=== PATIENT | female | born 1960 | race Caucasian/White ===

== ENCOUNTER 2018-02-15 05:47 | Inpatient (IN) | payer BC ==
[2018-01-21 14:31] VITALS: BMI 32.0
--- NOTE | 2018-01-21 14:42 | PAT Medication Instructions ---
Service Date Jan 21, 2018. Current Home Medication List Atorvastatin (Lipitor), 40 MG PO QPM Cholecalciferol (Vitamin D3), 1 CAP PO QPM Cyanocobalamin (Vitamin B12), 1,000 MCG PO QPM Duloxetine HCl (Cymbalta), 1 CAP PO QPM Hydrochlorothiazide (Hctz), 25 MG PO QAM Hydrocodone/Acetaminophen 10MG/325MG ([place] 10MG/325MG), 1 TAB PO Q4H PRN for Pain Linaclotide (Linzess), 145 MCG PO PRN Lisinopril (Zestril), 10 MG PO HS Lorazepam (Ativan), 0.5 MG PO TID PRN for PRN Pantoprazole (Protonix), 40 MG PO HS Potassium Chloride (Micro-K Ext Rel), 10 MEQ PO QAM Ranitidine Hcl (Zantac), 300 MG PO HS Sertraline (Zoloft), 200 MG PO HS Medication Instructions For Your Scheduled Surgery - Hold the following medications the night prior to surgery: Lisinopril (Zestril), 10 MG PO HS - Hold the following medications the morning of surgery: Hydrochlorothiazide (Hctz), 25 MG PO QAM Linaclotide (Linzess), 145 MCG PO PRN Potassium Chloride (Micro-K Ext Rel), 10 MEQ PO QAM - Take the following medications the morning of surgery with a sip of water: Lorazepam (Ativan), 0.5 MG PO TID PRN for PRN (if needed) Hydrocodone/Acetaminophen 10MG/325MG ([place] 10MG/325MG), 1 TAB PO Q4H PRN for Pain (okay to take up to 4 hours prior to surgery if needed) - Take the following medications as scheduled the night before surgery: Ranitidine Hcl (Zantac), 300 MG PO HS Sertraline (Zoloft), 200 MG PO HS Pantoprazole (Protonix), 40 MG PO HS Lorazepam (Ativan), 0.5 MG PO TID PRN for PRN (if needed) Linaclotide (Linzess), 145 MCG PO PRN (if needed) Hydrocodone/Acetaminophen 10MG/325MG ([place] 10MG/325MG), 1 TAB PO Q4H PRN for Pain (if needed) Duloxetine HCl (Cymbalta), 1 CAP PO QPM Atorvastatin (Lipitor), 40 MG PO QPM Cholecalciferol (Vitamin D3), 1 CAP PO QPM Cyanocobalamin (Vitamin B12), 1,000 MCG PO QPM If you have any questions please call us at [phone] or [phone] or [phone]
--- NOTE | 2018-01-21 16:01 | DIAGNOSTIC IMAGING REPORT ---
CHEST 2 VIEWS ROUTINE CLINICAL HISTORY: Preoperative chest COMPARISON STUDY: No previous studies for comparison. FINDINGS: The cardiac and mediastinal contours are normal. There is no evidence of focal pulmonary consolidation. There is no evidence of failure. No pleural effusions are visualized.[ IMPRESSION: No active disease in the chest. Electronically signed by: Dashawn Brewster M.D. 01/21/2018 4:00 PM Dictated Date/Time: 01/21/2018 4:00 PM
[2018-01-21 16:28] LABS: BASO % 0.3 %; BASO ABS # 0.03 K/uL (0-0.2); EOS % 1.3 %; EOS ABS # 0.13 K/uL (0-0.5); HEMATOCRIT 39.3 % (37-47); HEMOGLOBIN 13.7 g/dL (12.0-16.0); IG# 0.01 K/uL (0.00-0.02); LYMPH % 21.9 %; LYMPH ABS # 2.17 K/uL (1.2-3.4); MEAN CELL VOLUME 92.3 fL (80-100); MEAN CORPUSCULAR HEMOGLOBIN 32.2 pg (25-34); MEAN CORPUSCULAR HGB CONC 34.9 g/dl (32-36); MONO % 6.5 %; MONO ABS # 0.64 K/uL (0.11-0.59); NEUT % 69.9 %; NEUT ABS # 6.94 K/uL (1.4-6.5); PLATELET COUNT 274 K/uL (130-400); RED CELL DISTRIBUTION WIDTH CV 13.3 % (11.5-14.5); RED CELL DISTRIBUTION WIDTH SD 44.6 fL (36.4-46.3); WHITE BLOOD COUNT 9.92 K/uL (4.8-10.8)
[2018-01-21 16:39] LABS: CALCIUM 9.1 mg/dl (8.5-10.1); CREATININE 1.06 mg/dl (0.60-1.20); POTASSIUM 3.5 mmol/L (3.5-5.1)
[2018-02-15] VITALS (14 sets, daily range): BP systolic 105–134; BP diastolic 66–85; PULSE 79–101; TEMP 36.2–36.6; O2SAT 94–100; Ht 162.6 cm; Wt 86.0 kg
[~2018-02-15] VITALS: Ht 162.6 cm; Wt 86.0 kg
[~2018-02-15 05:47] MED LIST: ATOR-24 PO; CHOL2000 PO; CYAN100020 PO; CYM/30 PO; HYDR-4079 PO; HYDR25TA4 PO; LINA1CAP PO; LISI-461 PO; LORA-741 PO; PANT40TA PO; POTA10CA28 PO; RANI300T2 PO; SERT-234 PO
[2018-02-15] MEDS ORDERED: LACTATED RINGER'S 1000ML 1,000 ML IV SCH (06:00)
[2018-02-15] MEDS ORDERED: CEFAZOLIN 2000MG IV PUSH 15 ML IV SCH (06:00)
[2018-02-15] MEDS ORDERED: FENTANYL CITRATE INJ 50 MCG/1 ML 2 ML VIAL ONE ×3 (06:51→09:38)
[2018-02-15] MEDS ORDERED: MIDAZOLAM HCL 1 MG/ML 2ML VIAL ONE (06:51)
[2018-02-15] MEDS ORDERED: BACITRACIN 50000 UNIT VIAL ONE (07:06)
[2018-02-15] MEDS ORDERED: ATROPINE SULFATE 0.1 MG/ML 5ML SYR IV PRN (07:30)
[2018-02-15] MEDS ORDERED: ONDANSETRON INJ 2 MG/ML 2 ML VIAL IV PRN ×2 (07:30→09:45)
[2018-02-15] MEDS ORDERED: EpHEDrine SULFATE INJ 50 MG/ML AMP IV PRN (07:30)
--- NOTE | 2018-02-15 07:35 | History & Physical Bridge Note ---
H&P Re-Evaluation Bridge Note: I have examined the patient, reviewed the History & Physical and in the interval since the performance of the History & Physical I have noted the following changes of clinical significance: No changes noted
--- NOTE | 2018-02-15 07:36 | History and Physical ---
History & Physical Date Feb 15, 2018. Chief Complaint Neck and arm pain History of Present Illness The patient is a 57 year old female with complaints of neck and arm pain Additional History Hepatic Disease: No Endocrine Disorder: No Kidney Disease: No Hypertension: Yes Heart Disease: No Bleeding Tendencies: No Infectious Diseases: No Allergies Coded Allergies: Nickel (Verified Allergy, Unknown, ALL OVER BODY RASH WITH METAL, 02/15/18) Aspirin (Verified Adverse Reaction, Mild, GI UPSET, 02/15/18) Home Medications Scheduled Atorvastatin (Lipitor), 40 MG PO QPM Cholecalciferol (Vitamin D3), 1 CAP PO QPM Cyanocobalamin (Vitamin B12), 1,000 MCG PO QPM Hydrochlorothiazide (Hctz), 25 MG PO QAM Lisinopril (Zestril), 10 MG PO HS Pantoprazole (Protonix), 40 MG PO HS Potassium Chloride (Micro-K Ext Rel), 10 MEQ PO QAM Ranitidine Hcl (Zantac), 300 MG PO HS Sertraline (Zoloft), 200 MG PO HS Scheduled PRN Hydrocodone/Acetaminophen 10MG/325MG ([place] 10MG/325MG), 1 TAB PO Q4H PRN for Pain Lorazepam (Ativan), 0.5 MG PO TID PRN for PRN Physical Examination Skin: warm/dry, no rash Eyes: normal inspection, EOMI, sclerae normal ENT: normal ENT inspection, pharynx normal Head: normocephalic, atraumatic Neck: supple, no adenopathy, trachea midline Respiratory/Chest: lungs clear, normal breath sounds, no respiratory distress Cardiovascular: regular rate, rhythm, no edema, no murmur Abdomen / GI: normal bowel sounds, non tender Back: normal inspection Extremities: normal inspection, normal range of motion Neurologic/Psych: no motor/sensory deficits, alert, normal reflexes, oriented x 3 Diagnosis Cervical spinal stenosis Plan of Treatment C5 corpectomy C4-C7 fusion ACDF C6-7
[2018-02-15] MEDS ORDERED: HYDROmorphone INJ 2 MG/ML SYR/VIAL ONE ×2 (08:08→09:44)
[2018-02-15] MEDS ORDERED: FLOSEAL HEMOSTATIC MATRIX 10ML TOP ONE (09:30)
--- NOTE | 2018-02-15 09:41 | [facility] Operative Report ---
Operative Report Operative Date Feb 15, 2018. Pre-Operative Diagnosis Cervical Spinal Stenosis Post-Operative Diagnosis Cervical Spinal Stenosis Procedure(s) Performed 1. Anterior cervical corpectomy C5. #2 anterior cervical discectomy C6-7. #3 anterior cervical arthrodesis C4-C6 and C6-7. #4 placement peek cage 23 mm in height at C4-C6 and 7 mm at C6-7. #5 placement of locally harvested morselized autograft combined with DBM in the interbody cages. #6 application of globus plate and screws C4-C7. Surgeon Dr. Cheung Mva Reactor Operator Head Surgeon(s) Shady Tang PA-C Estimated Blood Loss 150 cc Findings Severe spinal stenosis Specimens none per surgeon Anesthesia Type General Description of Procedure Patient was met with preoperatively case discussed all questions addressed. After informed consent obtained patient was taken to the operative suite underwent intubation and placed in supine position on the David table of the head [place] headholder. All bony prominences were well-padded eyes inspected to ensure no external pressure placed upon them. This point the anterior cervical spine was prepped and draped in the normal sterile fashion. The assistance of fluoroscopy identified the C5-6 disc space and a transverse incision was placed along the right anterior aspect of the cervical spine overlying this region. Sharp dissection with the assistance of bipolar electrocautery was performed down to and exposing exposing the anterior cervical spine from C4-C7. Self retaining retractor was placed. I then performed a complete discectomy of C4-5 out to the uncovertebral joints bilaterally followed by C5-6. Roff distracting pins were then placed in C4 and C6 to distract across the C5 vertebral body. Then performed a complete corpectomy C5 including removal of all posterior annular fibers longitudinal ligament and bilateral foraminotomies. Endplates were then burred to subcortical bleeding bone and a 23 mm peek cage filled with locally harvested morselized autograft and DBM tapped in position. Distracting apparatus was removed and I proceeded to C6-7. Complete discectomy performed up to the uncal vertebral joints bilaterally was performed to remove posterior annular fibers performed bilateral foraminotomies. The endplates were then burred to subcortical bleeding bone and a 7 mm peek cage filled with locally harvested Lester's autograft and DBM tapped in position. All distracting apparatus was removed and the globus plate and screws applied with the assistance of fluoroscopy. Incision was then copiously irrigated explored to ensure there is no damage to surrounding structures or remaining bleeding. A 10 round LUZ drain was inserted. Incision was then closed with 2 Vicryl in a fashion of 4-0 Monocryl for fashion closure Steri-Strips sterile dressing was placed. Patient will continue to PACU in stable condition. Please note Cornelio Tang was present throughout the entire procedure involved in patient positioning complex portions of the surgery and fashion closure. I attest to the content of the Intraoperative Record and any orders documented therein. Any exceptions are noted below.
[2018-02-15] MEDS ORDERED: MAGNESIUM HYDROXIDE SUSP 30 ML UDC PO PRN (09:45)
[2018-02-15] MEDS ORDERED: DO NOT ADMINISTER PNEUMOCOCCAL VACCINE PRN (09:45)
[2018-02-15] MEDS ORDERED: LORAZEPAM 0.5 MG TAB PO PRN ×2 (09:45)
[2018-02-15] MEDS ORDERED: NALOXONE HCL 0.4 MG/1 ML VIAL/CARP IV PRN (09:45)
[2018-02-15] MEDS ORDERED: DO NOT ADMINISTER FLU VACCINE PRN (09:45)
[2018-02-15] MEDS ORDERED: DEXAMETHASONE INJ 8 MG in SYRINGE 0 ML IV PRN (09:45)
[2018-02-15] MEDS ORDERED: ACETAMINOPHEN IV 1,000 MG in EMPTY BAG 0 ML IV PRN (09:45)
[2018-02-15] MEDS ORDERED: DiphenhydrAMINE HCL 50 MG/ML VIAL IV PRN (09:45)
[2018-02-15] MEDS ORDERED: LORAZEPAM INJ 0.5 MG in SYRINGE 0.75 ML IV PRN (09:45)
[2018-02-15] MEDS ORDERED: RACEPINEPHRINE 2.25% NEBU SOLN 0.5 ML VIAL INH PRN (09:45)
[2018-02-15] MEDS ORDERED: PHENYLEPHRINE 100MCG/ML 5ML SYR ONE (10:04)
[2018-02-15] MEDS ORDERED: DEXAMETHASONE SOD INJ 4 MG/ML VIAL ONE (10:04)
[2018-02-15] MEDS ORDERED: LIDOCAINE HCL 2% 2 ML VIAL (20MG/ML) ONE (10:04)
[2018-02-15] MEDS ORDERED: GLYCOPYRROLATE INJ 0.2 MG/ML VIAL ONE (10:04)
[2018-02-15] MEDS ORDERED: PROPOFOL IV EMULSION 10 MG/ML 20 ML VIAL IV ONE (10:04)
[2018-02-15] MEDS ORDERED: ONDANSETRON INJ 2 MG/ML 2 ML VIAL ONE (10:04)
[2018-02-15] MEDS ORDERED: NEOSTIGMINE METHYLSULFATE 1 MG/ML 10ML VIAL ONE (10:04)
[2018-02-15] MEDS: FENTANYL CITRATE INJ 50 MCG/1 ML 2 ML VIAL IV PRN ×4 (10:04→10:19)
--- NOTE | 2018-02-15 10:08 | DIAGNOSTIC IMAGING REPORT ---
Cervical SPINE, INTRAOPERATIVE FLUOROSCOPY HISTORY: C4-C7 anterior fusion. FLUOROSCOPY TIME: 12 seconds. FINDINGS: Intraoperative fluoroscopy was provided for the cervical spine. 4 fluoroscopic spot images were obtained. Anterior cervical discectomy and fusion from C4 through C7 with a C5 corpectomy. The hardware appears intact. IMPRESSION: Fluoroscopy provided for a anterior cervical discectomy and fusion from C4 through C7.. Electronically signed by: Moshe Torres M.D. 02/15/2018 10:07 AM Dictated Date/Time: 02/15/2018 10:06 AM
[2018-02-15] MEDS: HYDROmorphone INJ 1 MG/ML SYR IV PRN ×6 (10:20→10:45)
[2018-02-15] MEDS ORDERED: LORAZEPAM 2 MG/ML 1 ML VIAL ONE (10:32)
[2018-02-15] MEDS ORDERED: NURSING VERBAL MED ORDER ONE (10:45)
--- NOTE | 2018-02-15 10:51 | Anesthesiology Progress Note ---
Anesthesia Post Op Note Date & Time Feb 15, 2018 at 10:51 Vital Signs Pain Intensity: 4 Vital Signs Past 12 Hours Date Time Temp Pulse Resp B/P (MAP) Pulse Ox O2 Delivery O2 Flow Rate FiO2 02/15/18 10:45 97 18 104/77 99 Nasal Cannula 2 02/15/18 10:35 36.3 90 18 110/59 98 Nasal Cannula 2 02/15/18 10:25 101 20 121/74 99 Nasal Cannula 2 02/15/18 10:15 93 14 119/77 100 Oxymask 10 02/15/18 10:05 96 20 132/69 100 Oxymask 10 02/15/18 09:56 36.2 94 18 116/76 100 Oxymask 10 02/15/18 06:15 36.6 80 20 134/85 98 Room Air Notes Mental Status: alert / awake / arousable, participated in evaluation Pt Amnestic to Procedure: Yes Nausea / Vomiting: adequately controlled Pain: adequately controlled Airway Patency, RR, SpO2: stable & adequate BP & HR: stable & adequate Hydration State: stable & adequate Anesthetic Complications: no major complications apparent
[2018-02-15] MEDS ORDERED: RXC5 PO (11:37)
--- NOTE | 2018-02-15 11:38 | Discharge Instructions ---
Discharge Instructions Date of Service Feb 15, 2018. Admission Reason for Admission: Cervical Spinal Stenosis Discharge Discharge Diagnosis / Problem: cervical stenosis Discharge Goals Goal(s): Improve function Activity Recommendations Activity Limitations: per Instructions/Follow-up section . Instructions / Follow-Up Instructions / Follow-Up ACTIVITY RECOMMENDATIONS: SELF CARE INSTRUCTIONS AFTER CERVICAL FUSIONS 1. No smoking. Smoking drastically decreases the chance of a solid fusion. 2. No bending, lifting more than 5 pounds, or twisting (roll like a log when turning in bed). 3. You may shower 3 days after surgery. Thoroughly dry wound. Do not soak in the tub. 4. Cervical collar: Must be worn at all times including sleeping. You may remove the brace only to bath, eat and if you are sitting in a recliner. 5. Please walk as much as you can for exercise. Gradually increase the distance that you walk as your endurance increases. SPECIAL CARE INSTRUCTIONS: VERY IMPORTANT TO READ AND REVIEW A. Do not take any anti-inflammatory medications (i.e. Indocin, Advil, Aspirin, Naprosyn, Aleve, Motrin, etc.) as these may inhibit the chance of a solid fusion. Tylenol is okay to take. B. Your surgical incision has been closed with a cosmetic suture under the skin that will dissolve in about 6 weeks. In 14 days, you can use a pair of clean scissors and cut the suture that is left outside of the skin at the ends of your incision. C. Complications are uncommon, but please contact us if you have any signs or symptoms of: 1. wound infection (fever higher than 102.5 degrees F, redness, separation of wound, drainage, or increasing pain from the incision) 2. blood clots in legs (pain, swelling, redness and warmth in legs) 3. urinary tract infection (fever higher than 102.5 degrees, burning upon urination or increased frequency of urination) 4. nerve problems (inability to walk on your toes or heels, numbness, loss of bowel or bladder control) 5. any other symptoms that concern you. D. Please call the office at if you have any concerns or questions about your operation or recovery. MANAGING PAIN AFTER SPINAL SURGERY 1. Narcotic medication is intended for short-term use and will be provided for surgical pain. Surgical pain usually lasts for a period of 4-6 weeks. Narcotic medication includes Percocet, Vicodin, Darvocet, Tylenol #3 or Lortab. 2. Longer-term pain is more appropriately treated with non-narcotic medication such as Tylenol ES. 3. Muscle spasm is not appropriately treated with narcotics. Muscle relaxers such as Soma, Flexeril or Skelaxin can be used along with Tylenol ES. 4. Remember that we all live with some "aches and pains". This is not unusual or uncommon after an injury or as we get older. 5. We will provide appropriate medication within the normal guidelines of their prescribed use. We will also be very cautious and aware of potential abuse and extended duration of patients' medication needs. 6. Please allow 2-3 days to process refills. Prescriptions will not be mailed but must be picked up at the office. FOLLOW UP VISIT: Keep your scheduled follow-up appointment. Any questions, please call the office at . Current Hospital Diet Patient's current hospital diet: Clear Liquid Diet Discharge Diet Recommended Diet: Regular Diet Procedures Procedures Performed: 1. Anterior cervical corpectomy C5. #2 anterior cervical discectomy C6-7. #3 anterior cervical arthrodesis C4-C6 and C6-7. #4 placement peek cage 23 mm in height at C4-C6 and 7 mm at C6-7. #5 placement of locally harvested morselized autograft combined with DBM in the interbody cages. #6 application of globus plate and screws C4-C7. Pending Studies Studies pending at discharge: no Medical Emergencies . Who to Call and When: Medical Emergencies: If at any time you feel your situation is an emergency, please call 911 immediately. . Non-Emergent Contact Non-Emergency issues call your: Primary Care Provider . "Provider Documentation" section prepared by Mane Cheung. .
[2018-02-15] MEDS ORDERED: HYDROCHLOROTHIAZIDE 25 MG TAB PO STA (11:44)
[2018-02-15] MEDS ORDERED: SCOPOLAMINE 1.5 MG TDSY TD SCH (12:00)
[2018-02-15] MEDS: SODIUM CHLORIDE 0.9% 1000ML 1,000 ML IV SCH (12:39)
[2018-02-15] MEDS: POTASSIUM CHLORIDE 10 MEQ TABCR PO SCH (12:39)
[2018-02-15] MEDS: CHECK SCOPOLAMINE PATCH PLACEMENT SCH ×2 (15:36→22:58)
[2018-02-15] MEDS ORDERED: NURSING DECISION MEDICATION ORDER SCH (17:00)
[2018-02-15] MEDS ORDERED: COUGH DROP (SUGAR FREE) LOZ 24 LOZ/1 BOX LOZ PRN (17:15)
[2018-02-15] MEDS: OXYCODONE HCL IR 5 MG TAB (IMMEDIATE RELEASE) PO PRN ×2 (18:33→23:02)
[2018-02-15] MEDS: CEFAZOLIN IV 2,000 MG in SYRINGE 0 ML IV SCH (18:33)
[2018-02-15] MEDS ORDERED: RANITIDINE HCL 150 MG TAB PO SCH (21:00)
[2018-02-15] MEDS ORDERED: ATORVASTATIN 20 MG TAB PO SCH (21:00)
[2018-02-15] MEDS ORDERED: SERTRALINE HCL 100 MG TAB PO SCH (21:00)
[2018-02-15] MEDS ORDERED: PANTOprazole SOD 40 MG TAB PO SCH (21:00)
[2018-02-15] MEDS ORDERED: LISINOPRIL 10 MG TAB PO SCH (21:00)
[2018-02-15] MEDS: HYDROmorphone INJ 0.5 MG/0.5 ML SYR IV PRN (21:23)
[2018-02-15] MEDS: DOCUSATE SODIUM 100 MG CAP PO SCH (21:25)
[2018-02-16] VITALS (12 sets, daily range): BP systolic 95–104; BP diastolic 55–64; PULSE 72–86; TEMP 36.5–36.7; O2SAT 92–100
[2018-02-16] MEDS: SODIUM CHLORIDE 0.9% 1000ML 1,000 ML IV SCH (02:20)
[2018-02-16] MEDS: CEFAZOLIN IV 2,000 MG in SYRINGE 0 ML IV SCH ×2 (02:21→10:17)
[2018-02-16] MEDS: OXYCODONE HCL IR 5 MG TAB (IMMEDIATE RELEASE) PO PRN ×2 (04:14→10:14)
[2018-02-16] MEDS: CHECK SCOPOLAMINE PATCH PLACEMENT SCH (08:00)
[2018-02-16] MEDS: DOCUSATE SODIUM 100 MG CAP PO SCH (08:43)
[2018-02-16] MEDS: POTASSIUM CHLORIDE 10 MEQ TABCR PO SCH (08:44)
[2018-02-16] MEDS ORDERED: HYDROCHLOROTHIAZIDE 25 MG TAB PO SCH (09:00)
--- NOTE | 2018-02-16 10:10 | Discharge Summary ---
Orthopedic Discharge Summary Admission Date/Reason Feb 15, 2018 at 09:44 Cervical Spinal Stenosis. Discharge Date/Disposition Feb 16, 2018 Home Diagnosis Principal Diagnosis: Cervical spinal stenosis Admission Physical Exam As per Admitting History & Physical. Hospital Course Patient underwent anterior cervical corpectomy and fusion tolerated as well as taken to the orthopedic floor postoperatively. Postop day #1 she is swallowing well arm symptoms improved neck pain controlled. No hoarseness. Subsequently discharged home. Discharge orders and instructions found in the chart for further review. Discharge Instructions Please refer to the electronic Patient Visit Report (Discharge Instructions) for additional information.
[2018-02-16] MEDS: HYDROmorphone INJ 0.5 MG/0.5 ML SYR IV PRN (12:32)
[2018-02-17] MEDS ORDERED: BISACODYL 5 MG TABEC PO PRN (06:00)
[2018-02-17] MEDS ORDERED: BISACODYL 10 MG SUPP PR PRN (06:00)
[2018-02-17] MEDS ORDERED: POLYETHYLENE (MIRALAX) 17 GM PACK PO SCH (09:00)
== END 2018-02-16 14:29 | disposition home or self-care (01) | DRG 473 ==
LOC: C.ACU 05:47 → C.3E 09:44 → ENRESERV 11:04
PROVIDERS: ADMIT Orthopaedic Surgery Orthopaedic Surgery of the Spine; ATTEND Orthopaedic Surgery Orthopaedic Surgery of the Spine
PROC: 0RT30ZZ Resection of Cervical Vertebral Disc, Open Approach (ICD-10-PCS; principal; 2018-02-15 07:45)
PROC: 0RG20A0 Fusion of 2 or more Cervical Vertebral Joints with Interbody Fusion Device, Anterior Approach, Anterior Column, Open Approach (ICD-10-PCS; principal; 2018-02-15 07:45)
DX: M48.02 Spinal stenosis, cervical region (principal); Z88.6 Allergy status to analgesic agent

== ENCOUNTER 2018-04-19 10:06 | Emergency (ER) | payer BC ==
[~2018-04-19] VITALS: Ht 162.6 cm; Wt 88.2 kg
[~2018-04-19 10:06] MED LIST changes: -CYM/30 PO; -LINA1CAP PO; +RXC5 PO
[2018-04-19 10:08] VITALS: TEMP 36.7; Ht 162.6 cm; Wt 88.2 kg
--- NOTE | 2018-04-19 10:31 | EMERGENCY ROOM VISIT NOTE ---
History Report prepared by Milo: Jenn Stafford Under the Supervision of: Dr. Javi Guardado M.D. 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 Positive constant dull low back pain (chronic but currently 10x worse), increased urinary incontinence, side pain. Negative chest pain, SOB, bowel incontinence, weakness. She states she was outside pulling weeds and suddenly fell on her left side and hit her head on the sidewalk. She is unsure if she had any LOC. She notes she called Dr. hCeung and her PCP and they recommended she come into the ED yesterday, however she was unable to as she did not have a way to get here. She reports that ever since she fell, her incontinence has been worse. The patient had a recent C4-C7 fusion, C5 corpectomy and ACDF of C6 and C7 on February 15. Source of History: patient Onset: 2 days captain room service Position: head, other (upper and lower extremities) Quality: dull (low back pain) Timing: constant (low back pain) Associated Symptoms: + back pain (low, chronic - but currently 10x worse than normal), No chest pain, No SOB, No weakness Note: Positive side pain, increased urinary incontinence, side pain. Negative bowel incontinence, weakness Review of Systems See HPI for pertinent positives and negatives. A total of ten systems were reviewed and were otherwise negative. Past Medical & Surgical Medical Problems: (1) Cervical stenosis of spinal canal Family History No pertinent family history Social History Smoking Status: Never Smoker Smokeless Tobacco Use: Unknown Housing Status: unknown Occupation Status: employed Current/Historical Medications Scheduled Atorvastatin (Lipitor), 40 MG PO QPM Cholecalciferol (Vitamin D3), 1 CAP PO QPM Cyanocobalamin (Vitamin B12), 1,000 MCG PO QPM Hydrochlorothiazide (Hctz), 25 MG PO QAM Lisinopril (Zestril), 10 MG PO HS Pantoprazole (Protonix), 40 MG PO HS Potassium Chloride (Micro-K Ext Rel), 10 MEQ PO QAM Ranitidine Hcl (Zantac), 300 MG PO HS Sertraline (Zoloft), 200 MG PO HS Scheduled PRN Hydrocodone/Acetaminophen 10MG/325MG ([place] 10MG/325MG), 1 TAB PO Q4H PRN for Pain Lorazepam (Ativan), 0.5 MG PO TID PRN for PRN Oxycodone HCl (Oxycodone HCl), 5-10 MG PO Q4H PRN for moderate-severe pain Oxycodone Immediate Rel Tab (Roxicodone Ir), 5 MG PO Q6H PRN for Pain Allergies Coded Allergies: Nickel (Verified Allergy, Unknown, ALL OVER BODY RASH WITH METAL, 04/19/18) Aspirin (Verified Adverse Reaction, Mild, GI UPSET, 04/19/18) Physical Exam Vital Signs Date Time Temp Pulse Resp B/P (MAP) Pulse Ox O2 Delivery O2 Flow Rate FiO2 04/19/18 16:10 67 16 145/76 96 Room Air 04/19/18 14:33 77 16 158/92 96 Room Air 04/19/18 12:36 77 16 143/92 96 Room Air 04/19/18 12:14 78 04/19/18 11:31 97 Room Air 04/19/18 11:30 81 16 138/91 97 Room Air 04/19/18 10:08 36.7 80 20 137/87 96 Room Air Physical Exam GENERAL: Awake, alert, well-appearing, NAD HENT: Normocephalic, atraumatic. EYES: Normal conjunctiva. Sclera non-icteric. PERRL. No anisocoria. NECK: Supple. No nuchal rigidity. FROM. No midline C spine TTP. RESPIRATORY: CTAB, no rhonchi, wheezing, crackles CARDIAC: RRR, no MRG ABDOMEN: Soft, NTND, BS+ MSK: No chest wall TTP, no LE edema. Negative straight leg raise bilaterally. Horizontal band of pain in the lower lumbar spine. No stepoffs. NEURO: CN 2-12 intact, 5/5 upper and lower extremity strength, no dysmetria, no drift, good finger to nose, no sensory deficits. Finger count grossly normal. No saddle anesthesia. SKIN: No rash or jaundice noted. Medical Decision & Procedures ER Provider Diagnostic Interpretation: Radiology results as stated below per my review and radiologist interpretation: CT SCAN OF THE LUMBAR SPINE WITHOUT IV CONTRAST CLINICAL HISTORY: Fall with low back pain. COMPARISON STUDY: No priors. TECHNIQUE: CT scan of the lumbar spine is performed from the lower thoracic spine to the sacrum. Images are reviewed in the axial, sagittal, and coronal planes. IV contrast was not administered for this examination. A dose lowering technique was utilized adhering to the principles of ALARA. CT DOSE: 706.84 mGy.cm FINDINGS: The skeletal structures are osteopenic. There is a minimal anterior superior endplate compression fracture of L5. Only minimal depression is seen. Minimal paravertebral edema is noted at this level. No retropulsed fragments are identified. No additional fracture is identified. Vertebral body height is otherwise maintained throughout the lumbar spine. Alignment is preserved. The transverse and spinous processes are intact. There is no spondylolysis. No lytic or blastic lesion is seen. There is moderate disc space narrowing with associated endplate sclerosis at L5-S1. The remaining disc spaces appear maintained. There is no evidence of large disc herniation or high-grade central canal stenosis by CT criteria. Mild facet arthropathy is seen in the lower lumbar region. The visualized sacrum and bony pelvis are intact. The paraspinous soft tissues are within normal limits. There is mild atherosclerotic calcification of the abdominal aorta. The major retroperitoneal structures are grossly unremarkable. IMPRESSION: 1. There is a minimal acute compression fracture involving the anterior superior endplate of L5. 2. No additional fracture is seen. 3. Osteopenia and mild degenerative change as above. Dictated: 04/19/2018 11:33 AM Transcribed: 04/19/2018 1:09 PM [email or web address] Electronically signed by: Carlitos Longoria M.D. 04/19/2018 1:40 PM CERVICAL SPINE W/O CLINICAL HISTORY: 58 years-old Female presenting with prior ACDF, fusion, and corpectomy, fall on Sunday. TECHNIQUE: Multidetector CT of the cervical spine was performed without the use of intravenous contrast. IV contrast: None. A dose lowering technique was used consistent with the principles of ALARA (as low as reasonably achievable). COMPARISON: None. CT DOSE (mGy.cm): The estimated cumulative dose is 292.84 mGy.cm. 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 Postsurgical changes of anterior discectomy and fusion of C4-C7 with C5 corpectomy. No hardware breakage is apparent. Osseous fusion not apparent. Straightening of normal cervical lordosis likely due to postsurgical change. Nonoperative levels demonstrate normal vertebral body height and alignment. Intervertebral disc height essentially preserved though a prominent disc osteophyte complexes noted at the adjacent level of C3-4 with minimal posterior bony spurring. No acute fracture or acute subluxation. Degenerative changes also noted at the atlantodental articulation. Uncovertebral hypertrophy minimally narrows the neural foramina on the on the right at C4-5 and left at C5-6. Skull base intact. Paraspinal soft tissues within normal limits allowing for noncontrast technique. Lung apices clear. IMPRESSION: 1. Postsurgical changes of C4-C7 fusion with C5 corpectomy. No hardware complication. 2. No acute osseous injury of the cervical spine. 3. Mild multilevel degenerative change. Electronically signed by: Elroy Moore M.D. 04/19/2018 11:32 AM Laboratory Results 04/19/18 10:52 Red Blood Count 3.79, Mean Corpuscular Volume 91.6, Mean Corpuscular Hemoglobin 31.4, Mean Corpuscular Hemoglobin Concent 34.3, Mean Platelet Volume 8.7, Neutrophils (%) (Auto) 63.5, Lymphocytes (%) (Auto) 24.9, Monocytes (%) (Auto) 7.4, Eosinophils (%) (Auto) 3.6, Basophils (%) (Auto) 0.5, Neutrophils # (Auto) 4.71, Lymphocytes # (Auto) 1.85, Monocytes # (Auto) 0.55, Eosinophils # (Auto) 0.27, Basophils # (Auto) 0.04 04/19/18 10:52 Test 04/19/18 10:52 White Blood Count 7.43 K/uL (4.8-10.8) Red Blood Count 3.79 M/uL (4.2-5.4) Hemoglobin 11.9 g/dL (12.0-16.0) Hematocrit 34.7 % (37-47) Mean Corpuscular Volume 91.6 fL (80-100) Mean Corpuscular Hemoglobin 31.4 pg (25-34) Mean Corpuscular Hemoglobin Concent 34.3 g/dl (32-36) Platelet Count 208 K/uL (130-400) Mean Platelet Volume 8.7 fL (7.4-10.4) Neutrophils (%) (Auto) 63.5 % Lymphocytes (%) (Auto) 24.9 % Monocytes (%) (Auto) 7.4 % Eosinophils (%) (Auto) 3.6 % Basophils (%) (Auto) 0.5 % Neutrophils # (Auto) 4.71 K/uL (1.4-6.5) Lymphocytes # (Auto) 1.85 K/uL (1.2-3.4) Monocytes # (Auto) 0.55 K/uL (0.11-0.59) Eosinophils # (Auto) 0.27 K/uL (0-0.5) Basophils # (Auto) 0.04 K/uL (0-0.2) RDW Standard Deviation 42.9 fL (36.4-46.3) RDW Coefficient of Variation 12.8 % (11.5-14.5) Immature Granulocyte % (Auto) 0.1 % Immature Granulocyte # (Auto) 0.01 K/uL (0.00-0.02) Prothrombin Time 11.1 SECONDS (9.0-12.0) Prothromb Time International Ratio 1.1 (0.9-1.1) Activated Partial Thromboplast Time 24.1 SECONDS (21.0-31.0) Partial Thromboplastin Ratio 0.9 Anion Gap 7.0 mmol/L (3-11) Est Creatinine Clear Calc Drug Dose 71.1 ml/min Estimated GFR () 77.6 Estimated GFR (Non- 67.0 BUN/Creatinine Ratio 11.6 (10-20) Calcium Level 8.5 mg/dl (8.5-10.1) Phosphorus Level 3.0 mg/dl (2.5-4.9) Magnesium Level 1.8 mg/dl (1.8-2.4) Laboratory results reviewed by me Medications Administered Medications (Trade) Dose Ordered Sig/Manoj Route Start Time Stop Time Status Last Admin Dose Admin Morphine Sulfate (MoRPHine SULFATE INJ) 4 mg NOW STAT IV 04/19/18 14:12 04/19/18 14:13 DC 04/19/18 14:29 4 MG Acetaminophen/ Hydrocodone Bitart ([place] 5/325 Tab) 1 tab ONE STAT PO 04/19/18 14:12 04/19/18 14:13 DC 04/19/18 14:28 1 TAB ECG Per My Interpretation Indication: back/shoulder pain Rate (beats per minute): 71 Rhythm: normal sinus Findings: other (normal intervals, normal axis, no STS changes or TWI) ED Course 1019: The patient was evaluated in room A3. A complete history and physical exam was performed. 1400: I spoke with Tati Clemente. He states he will come down and apply a brace to the patient and she can be discharged. 1542: I performed a rectal exam at this time. There was good rectal tone. No hemorrhoids. 1549: I reevaluated the patient. Discussed results and discharge instructions: She verbalized understanding and agreement. The patient is ready for discharge. Medical Decision The patient is a 58 year old white female with a past medical history of cervical stenosis of the spinal canal, central tremor, HLD, HTN who presents to the ED with a cc of a fall beginning 2 days captain room service. Positive constant dull low back pain (chronic but currently 10x worse), increased urinary incontinence, side pain. Negative chest pain, SOB, bowel incontinence, weakness. Nursing notes reviewed. Ancillary studies and prior records reviewed. Differential diagnosis: Etiologies such as musculoskeletal, disc herniation, fracture, aortic disease, metastatic disease, cord compression, discitis, infection, renal colic, gastrointestinal, acute exacerbation of chronic back pain, sciatica, cauda equina, as well as others were entertained. Patient was seen and evaluated the bedside. Patient does have history of chronic low back pain. Patient stated that she had spoken to both her PCP as well as her spine surgeon who told her to present here. The patient has had some increasing urinary incontinence. The patient already does have a history of this. On exam the patient does have a bandlike area of low back pain. No step-offs. Patient does not have any saddle anesthesia or weakness of the bilateral lower extremities. Patient did describe an episode of questionable syncope she stated that she was pulling some weeds and had stood up very quickly and then found herself on the ground. She states that this exacerbated her discomfort. Patient denies any chest pain or shortness of breath. Patient did have blood work completed, EKG, CT of the lumbar spine. A rectal exam was also performed. The patient did have good rectal tone. I do not believe the patient is cauda equina. The patient did convey some left upper extremity numbness from time to time however, on exam the patient does not have any numbness tingling or weakness. Patient also denies any C-spine tenderness to palpation. CT of the C-spine was negative. Patient's EKG is fairly unremarkable. Blood work also unremarkable. The patient's L-spine CT did show a compression fracture at L5. I did speak with the on-call orthopedist who recommended LSO. I did speak with the on-call orthotics who came to the bedside and help fit the patient for an LSO brace. The patient did receive more pain medication. Patient was told to follow-up with her spinal surgeon. Patient was deemed suitable for outpatient follow-up and treatment at this time. Patient was given strict follow-up, discharge, and return precautions. All questions were answered. Patient was deemed suitable for outpatient follow-up at this time. Patient agreed with the plan of care and was safely discharged home. Medication Reconcilliation Current Medication List: was personally reviewed by me Blood Pressure Screening Patient's blood pressure: Normal blood pressure Blood pressure disposition: Did not require urgent referral Consults Time Called: 1332 Consulting Physician: Tati Clemente Returned Call: 1400 I spoke with Tati Clemente. He states LSO brace and she can be discharged. Impression Primary Impression: Fall Additional Impressions: Back pain Compression fracture of L5 lumbar vertebra Scribe Attestation The scribe's documentation has been prepared under my direction and personally reviewed by me in its entirety. I confirm that the note above accurately reflects all work, treatment, procedures, and medical decision making performed by me. Departure Information Dispostion Home / Self-Care Prescriptions Oxycodone Immediate Rel Tab (ROXICODONE IR) 5 Mg Tab 5 MG PO Q6H Y for Pain, #12 TAB Prov: Javi Guardado M.D. 04/19/18 Referrals Troy Gongora D.O. (PCP) Forms HOME CARE DOCUMENTATION FORM, IMPORTANT VISIT INFORMATION Patient Instructions Back Pain - [facility], [facility] Additional Instructions Please return to the emergency department if you have worsening or recurrent symptoms not amenable to at-home treatment. Please call for a follow-up appointment with her primary care physician. Please take your medications as prescribed. If you have other concerns and/or complaints please feel free to also call your primary care physician's office or return the ED for further evaluation, management, and treatment. You received narcotic or benzodiazepene medication while in the emergency room today. This is an addictive medication that may cause drowziness as well as constipation. Do not drive, operate heavy machinery, or drink alcohol under the influence of this medication. You may take tylenol 1000 mg every 6 hours as needed for pain/fever unless told by your physician to not take it or have liver problems. If you still have discomfort you may take the narcotic medication. Please be advised that these medications are habit forming, can make you sleepy, and can cause breathing issues. Do not use if you require your full attention. Take only as prescribed. Take your medications as prescribed. If taking an antibiotic consider taking a probiotic and/or eating yogurt, but at the least, please take with food as it can cause upset stomach. You have been examined and treated today on an emergency basis only. This is not a substitute for, or an effort to provide, complete comprehensive medical care. It is impossible to recognize and treat all injuries or illnesses in a single emergency department visit. It is therefore important that you follow up closely with [facility], your PCP, and/or your specialist(s). Call as soon as possible for an appointment. Thank you for your time and consideration. I look forward to speaking with you again soon. Please don't hesitate to call us if you have any questions. Problem Qualifiers Primary Impression: Fall Encounter type: initial encounter Qualified Codes: W19.XXXA - Unspecified fall, initial encounter Additional Impressions: Back pain Back pain location: low back pain Chronicity: acute Back pain laterality: bilateral Sciatica presence: without sciatica Qualified Codes: M54.5 - Low back pain Compression fracture of L5 lumbar vertebra Encounter type: initial encounter Fracture type: closed Qualified Codes: S32.050A - Wedge compression fracture of fifth lumbar vertebra, initial encounter for closed fracture
[2018-04-19 11:03] LABS: BASO % 0.5 %; BASO ABS # 0.04 K/uL (0-0.2); EOS % 3.6 %; EOS ABS # 0.27 K/uL (0-0.5); HEMATOCRIT 34.7 % (37-47); HEMOGLOBIN 11.9 g/dL (12.0-16.0); IG# 0.01 K/uL (0.00-0.02); LYMPH % 24.9 %; LYMPH ABS # 1.85 K/uL (1.2-3.4); MEAN CELL VOLUME 91.6 fL (80-100); MEAN CORPUSCULAR HEMOGLOBIN 31.4 pg (25-34); MEAN CORPUSCULAR HGB CONC 34.3 g/dl (32-36); MEAN PLATELET VOLUME 8.7 fL (7.4-10.4); MONO % 7.4 %; MONO ABS # 0.55 K/uL (0.11-0.59); NEUT % 63.5 %; NEUT ABS # 4.71 K/uL (1.4-6.5); PLATELET COUNT 208 K/uL (130-400); RED CELL DISTRIBUTION WIDTH CV 12.8 % (11.5-14.5); RED CELL DISTRIBUTION WIDTH SD 42.9 fL (36.4-46.3); WHITE BLOOD COUNT 7.43 K/uL (4.8-10.8)
[2018-04-19 11:13] LABS: INR 1.1 (0.9-1.1); PTT PATIENT 24.1 SECONDS (21.0-31.0)
[2018-04-19 11:20] LABS: CALCIUM 8.5 mg/dl (8.5-10.1); CREATININE 0.95 mg/dl (0.60-1.20); POTASSIUM 3.3 mmol/L (3.5-5.1)
[2018-04-19 11:31] VITALS: O2SAT 97
--- NOTE | 2018-04-19 11:33 | DIAGNOSTIC IMAGING REPORT ---
CERVICAL SPINE W/O CLINICAL HISTORY: 58 years-old Female presenting with prior ACDF, fusion, and corpectomy, fall on Sunday. TECHNIQUE: Multidetector CT of the cervical spine was performed without the use of intravenous contrast. IV contrast: None. A dose lowering technique was used consistent with the principles of ALARA (as low as reasonably achievable). COMPARISON: None. CT DOSE (mGy.cm): The estimated cumulative dose is 292.84 mGy.cm. 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 Postsurgical changes of anterior discectomy and fusion of C4-C7 with C5 corpectomy. No hardware breakage is apparent. Osseous fusion not apparent. Straightening of normal cervical lordosis likely due to postsurgical change. Nonoperative levels demonstrate normal vertebral body height and alignment. Intervertebral disc height essentially preserved though a prominent disc osteophyte complexes noted at the adjacent level of C3-4 with minimal posterior bony spurring. No acute fracture or acute subluxation. Degenerative changes also noted at the atlantodental articulation. Uncovertebral hypertrophy minimally narrows the neural foramina on the on the right at C4-5 and left at C5-6. Skull base intact. Paraspinal soft tissues within normal limits allowing for noncontrast technique. Lung apices clear. IMPRESSION: 1. Postsurgical changes of C4-C7 fusion with C5 corpectomy. No hardware complication. 2. No acute osseous injury of the cervical spine. 3. Mild multilevel degenerative change. Electronically signed by: Elroy Moore M.D. 04/19/2018 11:32 AM Dictated Date/Time: 04/19/2018 11:28 AM
--- NOTE | 2018-04-19 13:10 | DIAGNOSTIC IMAGING REPORT ---
CT SCAN OF THE LUMBAR SPINE WITHOUT IV CONTRAST CLINICAL HISTORY: Fall with low back pain. COMPARISON STUDY: No priors. TECHNIQUE: CT scan of the lumbar spine is performed from the lower thoracic spine to the sacrum. Images are reviewed in the axial, sagittal, and coronal planes. IV contrast was not administered for this examination. A dose lowering technique was utilized adhering to the principles of ALARA. CT DOSE: 706.84 mGy.cm FINDINGS: The skeletal structures are osteopenic. There is a minimal anterior superior endplate compression fracture of L5. Only minimal depression is seen. Minimal paravertebral edema is noted at this level. No retropulsed fragments are identified. No additional fracture is identified. Vertebral body height is otherwise maintained throughout the lumbar spine. Alignment is preserved. The transverse and spinous processes are intact. There is no spondylolysis. No lytic or blastic lesion is seen. There is moderate disc space narrowing with associated endplate sclerosis at L5-S1. The remaining disc spaces appear maintained. There is no evidence of large disc herniation or high-grade central canal stenosis by CT criteria. Mild facet arthropathy is seen in the lower lumbar region. The visualized sacrum and bony pelvis are intact. The paraspinous soft tissues are within normal limits. There is mild atherosclerotic calcification of the abdominal aorta. The major retroperitoneal structures are grossly unremarkable. IMPRESSION: 1. There is a minimal acute compression fracture involving the anterior superior endplate of L5. 2. No additional fracture is seen. 3. Osteopenia and mild degenerative change as above. Dictated: 04/19/2018 11:33 AM Transcribed: 04/19/2018 1:09 PM [email or web address] Electronically signed by: Carlitos Longoria M.D. 04/19/2018 1:40 PM Dictated Date/Time: 04/19/2018 11:33 AM
[2018-04-19] MEDS ORDERED: MoRPHine SULFATE 4 MG/ML 1 ML CARP\\VIAL IV STA (14:12)
[2018-04-19] MEDS ORDERED: HYDROCODONE/ACETAMIN 5/325MG TAB PO STA (14:12)
[2018-04-19] MEDS ORDERED: OXYC1TAB3 PO (14:39)
[2018-04-19 16:10] VITALS: BP 145/76; PULSE 67; O2SAT 96
== END 2018-04-19 16:18 | disposition home or self-care (01) ==
LOC: C.EDB 10:07 → C.EDA 16:18
DX: M54.5 Low back pain (principal); S32.050A Wedge compression fracture of fifth lumbar vertebra, initial encounter for closed fracture; W19.XXXA Unspecified fall, initial encounter; Z88.8 Allergy status to other drugs, medicaments and biological substances